=== PATIENT | female | born 1975 | race Caucasian/White ===

== ENCOUNTER → 2024-02-18 13:02 | Outpatient (BNVA) | payer OTHER, SELFPAY | PROVIDERS: Visit Provider Nurse Practitioner | DX: R49.0 Dysphonia (principal); R53.83 Other fatigue; R20.0 Anesthesia of skin; R20.2 Paresthesia of skin; E03.9 Hypothyroidism, unspecified | CPT/HCPCS: 80053; 80061; 83036; 84443; 85025; 85651; 86038; 86140 ==

== ENCOUNTER → 2024-03-17 13:20 | Outpatient (BNVA) | payer OTHER, SELFPAY | PROVIDERS: PCP Nurse Practitioner; Visit Provider Nurse Practitioner | DX: L29.9 Pruritus, unspecified (principal); R19.7 Diarrhea, unspecified | CPT/HCPCS: 86003; 86008 ==

== ENCOUNTER → 2024-03-30 13:54 | Outpatient (BNVA) | payer OTHER, SELFPAY | PROVIDERS: PCP Nurse Practitioner; Referring Provider Nurse Practitioner; Visit Provider Nurse Practitioner | DX: E03.9 Hypothyroidism, unspecified (principal) | CPT/HCPCS: 80053; 84443 ==

== ENCOUNTER 2024-05-12 10:59 | Outpatient (CLI) | payer OTHER, SELFPAY ==
--- NOTE | 2024-05-12 11:00 | MM_ITS ---
WS: [id number] BILATERAL SCREENING DIGITAL TOMOSYNTHESIS MAMMOGRAM WITH CAD HISTORY: Z12.39 - Encounter for other screening for malignant neop... COMPARISON: None available. Bilateral CC and MLO views with tomosynthesis and synthetic mammography submitted. Computer aided det ection analyzed. Breast composition: There are scattered areas of fibroglandular density. No suspicious masses, microc alcifications or architectural distortion. Benign calcifications LEFT breast. MM/[place] [id number] IMPRESSION: BI-RADS: 2 - Benign. FOLLOW UP: 1 Year Follow-up
== END 2024-05-12 11:00 | disposition home or self-care (01) ==
LOC: MOBLMAM 11:02
PROVIDERS: PCP Nurse Practitioner; Visit Provider Nurse Practitioner
DX: Z12.31 Encounter for screening mammogram for malignant neoplasm of breast; R92.323 Mammographic fibroglandular density, bilateral breasts; R92.1 Mammographic calcification found on diagnostic imaging of breast
CPT/HCPCS: 77063; 77067

== ENCOUNTER 2025-02-20 12:28 | Emergency (ER) | payer OTHER, SELFPAY ==
[2025-02-20 12:34] VITALS: BP 132/71; PULSE 73; RESP 19; TEMP 36.6; O2SAT 100; BMI 31.9
--- NOTE | 2025-02-20 14:12 | W.ED.EXTPRO ---
HPI - Extremity Problem General: Chief complaint: Extremity Problem,Nontraumatic Stated complaint: R leg pain unable to walk on it Time Seen by Provider: 02/20/25 13:32 Source: patient Mode of arrival: wheelchair Limitations: no limitations History of Present Illness: Patient is a 49-year-old female who presents to the ED with chief complaint of lower back pain and right leg pain/weakness. Patient has a longstanding history of lower back pain that has gotten worse within the past week. She states she has been having lower back pain that radiates down into her right leg and mainly complains of pain and burning to her anteriolateral right lower leg. No fevers. She has not noticed any color or temperature changes to leg. She is not having any joint pain/erythema/edema. She has noticed some bilateral lower extremity edema. MD Complaint: extremity pain, extremity swelling and other (back pain) Onset (ago): day(s) Pain Consistency: constant Location: right and lower extremity Radiation: none Relieving factors: nothing Exacerbating factors: range of motion, walking and palpation Associated symptoms: Reports no associated symptoms; Deny chest pain, fever(s) or rash Related Data Previous Rx's ?Medication ?Instructions ?Recorded levothyroxine 175 mcg tablet See Rx Instructions .Route 07/26/24 .COMPLEX #30 tabs ferrous sulfate 325 mg (65 mg See Rx Instructions .Route 07/31/24 iron) tablet (FeroSul) .COMPLEX #100 tabs cyclobenzaprine 10 mg tablet 10 mg PO TID #14 tabs 02/20/25 hydrocodone 5 mg-acetaminophen 325 1 tab PO Q6H PRN pain #14 tabs 02/20/25 mg tablet ibuprofen 800 mg tablet 800 mg PO Q8H PRN pain #20 tabs 02/20/25 methylprednisolone 4 mg tablets in See Rx Instructions PO .COMPLEX 02/20/25 a dose pack (Medrol (Michael)) #21 ea Allergies Allergy/AdvReac Type Severity Reaction Status Date / Time Sulfa (Sulfonamide Allergy Intermediate Unknown Verified 03/17/24 12:56 Antibiotics) Review of Systems Const: Denies: fever(s), chills, body aches, fatigue or malaise Card: Denies: chest pain Resp: Denies: dyspnea GI: Denies: abdominal pain : Denies: flank pain, dysuria or hematuria Musc: Reports: back pain, extremity pain and extremity swelling; Denies: neck pain, joint pain, joint swelling, joint redness, joint warmth, joint stiffness or muscle cramps Skin/Breast: Denies: rash Neuro: Denies: headache(s), numbness in extremities, weakness in extremities or sensory changes PFS ED PFSH: Medical History Psychiatric care Family History Grandmother Cancer maternal- colon Family/Other Cancer cousins-- breast Father Cancer prostate Denies family history of Diabetes Chronic kidney disease (CKD) Social History Smoking and tobacco/nicotine status: never used tobacco/nicotine Female Reproductive History: Para: 4 Spontaneous abortions: Yes Physical Exam Const: COMMON NORMALS: average body habitus, patient oriented x3, no limitations, alert and well nourished GENERAL APPEARANCE: cooperative ORIENTATION/CONSCIOUSNESS: Yes awake, Yes oriented to person, Yes oriented to place and Yes oriented to time Back/Pelvis: COMMON NORMALS: thoracic and lumbar spine normal to inspection THORACIC SPINE/UPPER BACK: No thoracic spinal tenderness LUMBAR SPINE/LOWER BACK: No lumbar spinal tenderness PELVIS: Yes buttocks normal and Yes sciatic notch tenderness SACROILIAC JOINTS: Yes SI joint(s) abnormal SI joint details: tender to palpation (R) SACRUM: no tenderness COCCYX: no tenderness Extremity: COMMON NORMALS: capillary refill normal and no joint enlargement GENERAL: Yes normal exam except as noted OTHER: pain mainly to R lower leg below the knee; she does have bilateral mild (R>L) non pitting edema; DP/PT pulses and cap refill are normally bilaterally; sensation appears intact; she complains of pain with ROM of all joints; leg strength is weakened due to pain but strength loss does not affect any specific myotome Neuro: COMMON NORMALS: patient oriented x3, moves all extremities, no focal motor deficits, no sensory deficits noted and gait normal SENSORIUM/ORIENTATION: Yes alert, Yes oriented to person, Yes oriented to place and Yes oriented to time GAIT: Yes Normal gait present DEEP TENDON REFLEXES: Right patellar reflex intensity grade: 2+ and Left patellar reflex intensity grade: 2+ Skin: COMMON NORMALS: no rashes or lesions noted GENERAL SKIN EXAM: no rashes or lesions noted Course Vital Signs: Vital signs: Vital Signs Temperature 97.9 F 02/20/25 12:34 Pulse Rate 73 02/20/25 12:34 Respiratory Rate 19 H 02/20/25 12:34 Blood Pressure 132/71 02/20/25 12:34 Pulse Oximetry 100 02/20/25 12:34 Oxygen Delivery Me thod Room Air 02/20/25 12:34 MDM - Extremity (Nontraumatic) Medical Decision Making Patient feels better after medications given here. She was ambulatory here. Vital signs are stable. Blood work overall is unremarkable. Will refer her to Dr. Elias given her mild right lateral recess stenosis and neural foraminal stenosis at the L4-L5 level which corresponds to her symptoms today. Return ED precautions given. Medical Records I reviewed the patient's medical records. Lab Data 02/20/25 16:05 02/20/25 16:05 Radiology Impressions Lumbar Spine CT 02/20/25 14:25 IMPRESSION: 1. Right lateral recess stenosis and neural foraminal stenosis at the L4-L5 level. 2. Schmorl's nodes at the L4-L5 endplates may be degenerative or compressive induced. Laboratory Results WBC 6.62 10^3/uL (3.29-11.43) 02/20/25 16:05 RBC 3.83 10^6/uL (3.85-5.65) L 02/20/25 16:05 Hgb 11.10 g/dL (11.27-16.99) L 02/20/25 16:05 Hct 34.0 % (36-47) L 02/20/25 16:05 MCV 88.8 fl (85-98) 02/20/25 16:05 MCH 29.0 pg (27-33) 02/20/25 16:05 MCHC 32.6 g/dL (30-55) 02/20/25 16:05 RDW 13.7 % (12.1-15.1) 02/20/25 16:05 Plt Count 239 10^3/cmm (157-399) 02/20/25 16:05 MPV 9.4 fL (7.4-10.4) 02/20/25 16:05 Neut % (Auto) 78.9 % 02/20/25 16:05 Lymph % (Auto) 14.8 % 02/20/25 16:05 Chester % (Auto) 2.3 % 02/20/25 16:05 Eos % (Auto) 2.3 % 02/20/25 16:05 Baso % (Auto) 1.4 % 02/20/25 16:05 Neut # (Auto) 5.23 10^3/uL (1.8-7.7) 02/20/25 16:05 Lymph # (Auto) 1.0 10^3/uL (0.8-4.8) 02/20/25 16:05 Chester # (Auto) 0.2 10^3/uL (0.2-0.9) 02/20/25 16:05 Eos # (Auto) 0.2 10^3/uL (0.0-0.8) 02/20/25 16:05 Baso # (Auto) 0.1 10^3/uL (0.0-0.1) 02/20/25 16:05 Nucleated RBC % (auto) 0 % 02/20/25 16:05 Nucleated RBCs # 0.0 /100WBC 02/20/25 16:05 Sodium 138 mmol/L (136-145) 02/20/25 16:05 Potassium 3.8 mmol/L (3.5-5.1) 02/20/25 16:05 Chloride 101 mmol/L (98-107) 02/20/25 16:05 Carbon Dioxide 25 mmol/L (22-29) 02/20/25 16:05 Anion Gap 15.8 (5-19) 02/20/25 16:05 BUN 14 mg/dL (6-20) 02/20/25 16:05 Creatinine 1.3 mg/dL (0.5-0.9) H 02/20/25 16:05 GFR Calculation 43.5 mL/min (90-130) L 02/20/25 16:05 Glucose 120 mg/dL (65-115) H 02/20/25 16:05 Calculated Osmolality 288 mOsm/kg (285-295) 02/20/25 16:05 Calcium 9.3 mg/dL (8.5-10.5) 02/20/25 16:05 Total Bilirubin 0.4 mg/dL (0.15-1.2) 02/20/25 16:05 AST 55 U/L (0-32) H 02/20/25 16:05 ALT 22 U/L (0-33) 02/20/25 16:05 Alkaline Phosphatase 76 U/L (35-105) 02/20/25 16:05 C-Reactive Protein 3.0 mg/L (0.0-4.9) 02/20/25 16:05 Total Protein 7.6 g/dL (6.6-8.7) 02/20/25 16:05 Albumin 4.3 g/dL (3.5-5.2) 02/20/25 16:05 Globulin 3.3 g/dL (1.3-4.6) 02/20/25 16:05 All radiology interpretation(s) finalized by discharge Discharge Plan Discharge Patient Disposition: Home Clinical Impression: Acute right lumbar radiculopathy Condition: Stable Prescriptions: New cyclobenzaprine 10 mg tablet 10 mg PO TID Qty: 14 0RF ibuprofen 800 mg tablet 800 mg PO Q8H PRN (Reason: pain) Qty: 20 0RF hydrocodone-acetaminophen 5-325 mg tablet 1 tab PO Q6H PRN (Reason: pain) Qty: 14 0RF methylprednisolone [Medrol (Michael)] 4 mg tablets,dose pack See Rx Instructions .ROUTE .COMPLEX Qty: 21 0RF Rx Instructions: orally per package directions No Action levothyroxine 175 mcg tablet See Rx Instructions .ROUTE .COMPLEX Qty: 30 1RF Dose Instruction: TAKE 1 TABLET BY MOUTH DAILY Rx Instructions: TAKE 1 TABLET BY MOUTH DAILY ferrous sulfate [FeroSul] 325 mg (65 mg iron) tablet See Rx Instructions .ROUTE .COMPLEX Qty: 100 1RF Dose Instruction: TAKE 1 TABLET BY MOUTH DAILY Rx Instructions: TAKE 1 TABLET BY MOUTH DAILY Discharge Orders: Discharge ED (Routine); Ordered 02/20/25 Ordered By: Lynda Cortes Referrals: Emely Staton FNP [Primary Care Provider, Nurse Practitioner] Patient Instructions: Lumbar Radiculopathy (ED), Opioid Safety, Pain Management Activity Restrictions/Additional Instructions: As we discussed, we will place a case management referral to get you set up with Dr. Elias for further evaluation of your back discomfort and CT findings. You may also follow-up with primary care in the meantime. You may try the prescription medications to help with discomfort. You may return to the emergency department for worsening or severe abdominal pain or leg pain as well as severe leg weakness, inability to walk, or any other concerns you may have. Print Language: Citizen Of [place] Coding Level of Care Code ED Shipping Assistant for Elisa Alonzo
--- NOTE | 2025-02-20 14:25 | CTR_ITS ---
PROCEDURE INFORMATION: Exam: CT Lumbar Spine Without Contrast Exam date and time: 02/20/2025 2:58 PM Age: 49 years old Clinical indication: Pain; Lumbago with sciatica; Right; Additional info: R leg pain/numbness TECHNIQUE: Imaging protocol: Computed tomography of the lumbar spine without contrast. Radiation optimization: All CT scans at this facility use at least one of these dose optimization techniques: automated exposure control; mA and/or kV adjustment per patient size (includes targeted exams where dose is matched to clinical indication); or iterative reconstruction. COMPARISON: No relevant prior studies available. RADIATION DOSE METRICS: Total DLP (mGy-cm): 882.78 FINDINGS: Bones/joints: There are no anterior wedging deformities. No acute lucent fracture lines are visualized. Schmorl's nodes at the L4-L5 endplates may be degenerative or compressive induced. There is lower lumbar facet arthropathy. Spondylitic disc bulge causes right lateral recess stenosis at L4-L5. Moderate to severe right neural foraminal stenosis at this level. There is no severe central canal stenosis demonstrated by CT. Reproductive: There is a 5.0 cm right adnexal cyst partially visualized in the pelvis. Soft tissues: Unremarkable. CT/CT lumbar spine wo con* [id number] IMPRESSION: 1. Right lateral recess stenosis and neural foraminal stenosis at the L4-L5 level. 2. Schmorl's nodes at the L4-L5 endplates may be degenerative or compressive induced.
[2025-02-20] MEDS: orphenadrine 30 mg/mL Inj 2 mL 60 MG IVP (14:50)
[2025-02-20] MEDS: ketorolac 60 mg/2 mL INJ 30 MG IVP (14:52)
[2025-02-20] MEDS: dexamethasone 10 mg/mL INJ 8 MG IVP (14:53)
[2025-02-20 16:28] LABS: Basophils # 0.1 10^3/uL (0.0-0.1); Basophils % 1.4 %; Eosinophils # 0.2 10^3/uL (0.0-0.8); Eosinophils % 2.3 %; Lymphocytes % 14.8 %; Mean Corpuscular HGB Conc 32.6 g/dL (30-55); Mean Corpuscular Volume 88.8 fl (85-98); Mean Platelet Volume 9.4 fL (7.4-10.4); Monocytes # 0.2 10^3/uL (0.2-0.9); Monocytes % 2.3 %; Neutrophils # 5.23 10^3/uL (1.8-7.7); Neutrophils % 78.9 %; Nucleated Red Blood Cells % 0 %; Platelet Count 239 10^3/cmm (157-399); Red Blood Count 3.83 10^6/uL (3.85-5.65); Red Cell Distribution Width 13.7 % (12.1-15.1); White Blood Count 6.62 10^3/uL (3.29-11.43)
[2025-02-20] MEDS: morphine 4 mg/mL SDV 1 mL IVP (16:44)
[2025-02-20 16:45] LABS: Alanine Aminotransferase 22 U/L (0-33); Albumin Level 4.3 g/dL (3.5-5.2); Alkaline Phosphatase 76 U/L (35-105); Anion Gap 15.8 (5-19); Aspartate Amino Transferase 55 U/L (0-32); Blood Urea Nitrogen 14 mg/dL (6-20); Calcium 9.3 mg/dL (8.5-10.5); Carbon Dioxide 25 mmol/L (22-29); Chloride 101 mmol/L (98-107); Creatinine Clr Calc Pharmacy 55.0104; Globulin 3.3 g/dL (1.3-4.6); Glomerular Filtration Rate 43.5 mL/min (90-130); Glucose 120 mg/dL (65-115); Osmolality Calculated 288 mOsm/kg (285-295); Potassium 3.8 mmol/L (3.5-5.1); Sodium 138 mmol/L (136-145); Total Bilirubin 0.4 mg/dL (0.15-1.2); Total Protein 7.6 g/dL (6.6-8.7)
--- NOTE | 2025-02-22 08:08 | DCPLANNER ---
Message sent to Ortho Dr. Elias- Patient feels better after medications given here. She was ambulatory here. Vital signs are stable. Blood work overall is unremarkable. Will refer her to Dr. Elias given her mild right lateral recess stenosis and neural foraminal stenosis at the L4-L5 level which corresponds to her symptoms today. Return ED precautions given.
== END 2025-02-20 17:15 | disposition home or self-care (01) ==
PROVIDERS: Emergency Provider Physician Assistant; PCP Nurse Practitioner
DX: M54.16 Radiculopathy, lumbar region (principal)
CPT/HCPCS: 72131; 80053; 85025; 86140; 96374; 96375; 99285; J1100; J1885; J2270; J2360

== ENCOUNTER → 2025-02-23 18:21 | Outpatient (BNVA) | payer OTHER, SELFPAY | PROVIDERS: PCP Nurse Practitioner; Visit Provider Family Medicine | DX: S96.911A Strain of unspecified muscle and tendon at ankle and foot level, right foot, initial encounter (principal); X58.XXXA Exposure to other specified factors, initial encounter | CPT/HCPCS: 73610 ==

== ENCOUNTER → 2025-02-28 14:34 | Outpatient (BNVA) | payer OTHER, SELFPAY | PROVIDERS: PCP Nurse Practitioner; Visit Provider Nurse Practitioner | DX: M25.571 Pain in right ankle and joints of right foot (principal); R20.0 Anesthesia of skin; R20.2 Paresthesia of skin; E03.9 Hypothyroidism, unspecified | CPT/HCPCS: 80053; 84443; 84550; 85025; 86618; 86666; 86757 ==

== ENCOUNTER → 2025-03-09 13:58 | Outpatient (BNVA) | payer OTHER, SELFPAY | PROVIDERS: PCP Nurse Practitioner; Visit Provider Nurse Practitioner | DX: R60.0 Localized edema (principal); E87.6 Hypokalemia | CPT/HCPCS: 80053; 85651; 86038; 86140; 86431 ==

== ENCOUNTER → 2025-03-21 09:06 | Outpatient (BNVA) | payer OTHER, SELFPAY | PROVIDERS: PCP Nurse Practitioner; Visit Provider Orthopaedic Surgery | DX: R20.0 Anesthesia of skin (principal); R20.2 Paresthesia of skin; M21.371 Foot drop, right foot; Z46.89 Encounter for fitting and adjustment of other specified devices | CPT/HCPCS: 72110 ==

== ENCOUNTER 2025-03-22 10:11 | Emergency (ER) | payer OTHER, SELFPAY ==
[2025-03-22 10:23] VITALS: BP 122/77; PULSE 91; TEMP 36.8; O2SAT 98
--- NOTE | 2025-03-22 10:23 | USCV_ITS ---
Ramirez Edge Age: 49 Gender: F : 1975 Exam Date: 03/22/2025 11:23 Ordering Phys: Dominique Love MD Technologist: [employer] Exam Location: [facility] – [place]_ Indication: RIGHT LEG PAIN HISTORY: Lower extremity pain-RIGHT PROCEDURES: Venous duplex imaging was performed in only the right lower extremity. The following venous structures were evaluated: common femoral vein, profunda vein, proximal portion of the greater saphenous vein, superficial femoral vein, and the popliteal vein. In addition, the posterior tibial and peroneal trunk were evaluated. FINDINGS: No evidence of DVT seen in any vessel visualized at this time. CONCLUSIONS No evidence of right lower extremity DVT. Ovidio Gustafson MD (Electronically Signed) Final Date: 22 March 2025 12:47 S
--- NOTE | 2025-03-22 10:24 | W.ED.GENADLT ---
HPI - General Adult General: Chief complaint: Extremity Problem,Nontraumatic Stated complaint: dr garcia sent for diagnostic testing Time Seen by Provider: 03/22/25 10:18 History of Present Illness: 49-year-old female with a history of obesity, depression and hypothyroidism who presents to the emergency room from neurology clinic. She been having issues with foot drop and neuropathic issues. She was sent to rule out compartment syndrome. On exam she does not have any evidence of compartment syndrome. Currently she has no pain. She does have some mild edema and little bit of redness. However there is no evidence of compartment syndrome. She has not had an ultrasound to rule out DVT so we will do that here in the emergency room today. No chest pain. No cardiac history. No shortness of breath. Related Data Home Medications ?Medication ?Instructions ?Recorded ?Confirmed gabapentin 300 mg capsule 300 mg PO QPM 03/22/25 03/22/25 levothyroxine 175 mcg tablet 175 mcg PO QAM 03/22/25 03/22/25 venlafaxine 37.5 mg 37.5 mg PO QAM 03/22/25 03/22/25 capsule,extended release 24 hr (Effexor XR) Previous Rx's ?Medication ?Instructions ?Recorded ibuprofen 800 mg tablet 800 mg PO Q8H PRN pain #20 tabs 02/20/25 potassium chloride 20 mEq 20 meq PO DAILY #30 tabs 03/02/25 tablet,extended release(part/cryst) (Klor-Con M) AFO brace #1 ea 03/21/25 Allergies Allergy/AdvReac Type Severity Reaction Status Date / Time Sulfa (Sulfonamide Allergy Intermediate Unknown Verified 03/22/25 10:25 Antibiotics) Review of Systems Narrative: Constitutional symptoms: Negative except as documented in HPI. Skin symptoms: Negative except as documented in HPI. Eye symptoms: Negative except as documented in HPI. ENMT symptoms: Negative except as documented in HPI. Respiratory symptoms: Negative except as documented in HPI. Cardiovascular symptoms: Negative except as documented in HPI. Gastrointestinal symptoms: Negative except as documented in HPI. Genitourinary symptoms: Negative except as documented in HPI. Musculoskeletal symptoms: Negative except as documented in HPI. Neurologic symptoms: Negative except as documented in HPI. Psychiatric symptoms: Negative except as documented in HPI. Endocrine symptoms: Negative except as documented in HPI. [facility] ED PFS: Medical History (Updated 03/22/25 @ 11:34 by Dominique Love MD) Psychiatric care Family History Grandmother Cancer maternal- colon Family/Other Cancer cousins-- breast Father Cancer prostate Denies family history of Diabetes Chronic kidney disease (CKD) Social History Smoking and tobacco/nicotine status: former use of tobacco/nicotine Female Reproductive History: Para: 4 Spontaneous abortions: Yes Physical Exam Narrative: EXAM NARRATIVE: General: Alert, no acute distress. Skin: Warm, dry. Head: Normocephalic, atraumatic. Neck: Supple, trachea midline. Eye: Extraocular movements are intact. Ears, nose, mouth and throat: mucosa moist. Cardiovascular: Regular, Normal peripheral perfusion. Respiratory: Lungs are clear to auscultation, respirations are non-labored, breath sounds are equal, Symmetrical chest wall expansion. Gastrointestinal: Soft, Nontender, Non distended Musculoskeletal: Normal ROM, no deformity. Some mild edema of the right calf with some mild redness. Currently she has no pain. She is neurovascularly intact. No evidence of compartment syndrome. Neurological: Alert and oriented, No focal neurological deficit observed. Psychiatric: Cooperative, appropriate mood & affect. Course Vital Signs: Vital signs: Vital Signs Temperature 98.2 F 03/22/25 10:23 Pulse Rate 91 03/22/25 10:23 Blood Pressure 122/77 03/22/25 10:23 Pulse Oximetry 98 03/22/25 10:23 Oxygen Delivery Me thod Room Air 03/22/25 10:23 MDM - General Adult Medical Decision Making Medical decision making: Differential diagnosis including but not limited to and based on the above HPI, review of systems and physical exam: for patient with edema: Congestive heart failure. Kidney failure. DVT / Pulmonary embolism. Protein malnutrition. Cirrhosis. Orders placed to evaluate differential diagnosis based on the above differential, HPI and physical exam Lab Review: Laboratory results were reviewed and interpreted by myself the emergency room physician. No leukocytosis. No anemia. No renal failure. CRP is quite elevated and her CK is mildly elevated. I reviewed the patient's medical record. Ultrasound of the right lower extremity: Negative for DVT. This was reviewed and interpreted by myself the emergency room physician. I also reviewed the radiology report. Reexamination: Patient remained stable. No increased work of breathing. No altered mental status. No focal motor deficits. Currently with no pain. She has follow-up with Dr. Andrew with Dr. Garcia for her foot drop and neuropathic pain. Assessment and plan: Leg swelling Foot drop - Discharged home - Discussed plan with patient. Answered any questions. - Evaluation and treatment of this problem were appropriate in the emergency setting. Lab Data 03/22/25 10:41 03/22/25 10:41 Laboratory Results WBC 6.04 10^3/uL (3.29-11.43) 03/22/25 10:41 RBC 4.00 10^6/uL (3.85-5.65) 03/22/25 10:41 Hgb 11.50 g/dL (11.27-16.99) 03/22/25 10:41 Hct 35.6 % (36-47) L 03/22/25 10:41 MCV 89.0 fl (85-98) 03/22/25 10:41 MCH 28.8 pg (27-33) 03/22/25 10:41 MCHC 32.3 g/dL (30-55) 03/22/25 10:41 RDW 13.3 % (12.1-15.1) 03/22/25 10:41 Plt Count 318 10^3/cmm (157-399) 03/22/25 10:41 MPV 8.3 fL (7.4-10.4) 03/22/25 10:41 Neut % (Auto) 61.3 % 03/22/25 10:41 Lymph % (Auto) 24.5 % 03/22/25 10:41 Orange % (Auto) 9.9 % 03/22/25 10:41 Eos % (Auto) 2.6 % 03/22/25 10:41 Baso % (Auto) 1.0 % 03/22/25 10:41 Neut # (Auto) 3.70 10^3/uL (1.8-7.7) 03/22/25 10:41 Lymph # (Auto) 1.5 10^3/uL (0.8-4.8) 03/22/25 10:41 Orange # (Auto) 0.6 10^3/uL (0.2-0.9) 03/22/25 10:41 Eos # (Auto) 0.2 10^3/uL (0.0-0.8) 03/22/25 10:41 Baso # (Auto) 0.1 10^3/uL (0.0-0.1) 03/22/25 10:41 Nucleated RBC % (auto) 0 % 03/22/25 10:41 Nucleated RBCs # 0.0 /100WBC 03/22/25 10:41 Sodium 137 mmol/L (136-145) 03/22/25 10:41 Potassium 3.8 mmol/L (3.5-5.1) 03/22/25 10:41 Chloride 98 mmol/L (98-107) 03/22/25 10:41 Carbon Dioxide 26 mmol/L (22-29) 03/22/25 10:41 Anion Gap 16.8 (5-19) 03/22/25 10:41 BUN 9 mg/dL (6-20) 03/22/25 10:41 Creatinine 0.8 mg/dL (0.5-0.9) 03/22/25 10:41 GFR Calculation 76.2 mL/min (90-130) L 03/22/25 10:41 Glucose 113 mg/dL (65-115) 03/22/25 10:41 Calculated Osmolality 283 mOsm/kg (285-295) L 03/22/25 10:41 Calcium 9.3 mg/dL (8.5-10.5) 03/22/25 10:41 Total Bilirubin 0.6 mg/dL (0.15-1.2) 03/22/25 10:41 AST 22 U/L (0-32) 03/22/25 10:41 ALT 16 U/L (0-33) 03/22/25 10:41 Alkaline Phosphatase 84 U/L (35-105) 03/22/25 10:41 Creatine Kinase 196 U/L (26-192) H 03/22/25 10:41 C-Reactive Protein 6.7 mg/L (0.0-4.9) H 03/22/25 10:41 NT-Pro-B Natriuret Pep 50 pg/mL (0-125) 03/22/25 10:41 Total Protein 7.3 g/dL (6.6-8.7) 03/22/25 10:41 Albumin 4.2 g/dL (3.5-5.2) 03/22/25 10:41 Globulin 3.1 g/dL (1.3-4.6) 03/22/25 10:41 All radiology interpretation(s) finalized by discharge Discharge Plan Discharge Patient Disposition: Home Clinical Impression: Leg edema, right, Foot drop, right Condition: Stable Prescriptions: No Action (DME) AFO brace See Rx Instructions .Route .MEDSUPPLY Qty: 1 0RF Rx Instructions: As directed potassium chloride [Klor-Con M20] 20 mEq tablet,ER particles/crystals 20 meq PO DAILY Qty: 30 1RF ibuprofen 800 mg tablet 800 mg PO Q8H PRN (Reason: pain) Qty: 20 0RF levothyroxine 175 mcg tablet 175 mcg PO QAM venlafaxine [Effexor XR] 37.5 mg capsule,extended release 24hr 37.5 mg PO QAM gabapentin 300 mg capsule 300 mg PO QPM Discharge Orders: Discharge ED (Routine); Ordered 03/22/25 Ordered By: Dominique Love Referrals: Emely Staton FNP [Primary Care Provider, Nurse Practitioner] Discharge Diet: Usual diet Discharge Activity: Increase activity as tolerated Patient Instructions: Opioid Safety, Pain Management, Patient Portal & Babatunde Instructions Activity Restrictions/Additional Instructions: Thank you for choosing [facility] for your healthcare needs today. You have been screened and evaluated and felt safe for discharge. Health conditions do change or evolve sometimes and as such it is important that you follow up with your Primary Doctor to be re checked, 3-5 days is a general good time frame for follow up. You are always welcome to return to the ED for re assessment if your symptoms are worsening or you have new concerns Print Language: Hungarian Coding Level of Care Code ED Salon Supervisor for Elisa Alonzo
--- OUTSIDE RECORDS SUMMARY | 2025-03-22 10:24 | XMS_ITS | Data Portability ---
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 Plan of Treatment Reminders Order Date Submit Date Provider Last Modified By Organization Details Last Modified Time Details Appointments None recorded. Lab CBC, reflex manual diff 2021 022 mariposa Vm_phxharrison chavira MD Lab, [address], [address], [place], [address], 2 09:58:52 lipid panel, serum 2021 022 mariposa Keller_phxharrison chavira MD Lab, [address], [address], [place], [address], 2 09:58:52 CMP, serum or plasma 2021 022 [place] Vm_phxharrison chavira MD Lab, [address], [address], [place], [address], 2 09:58:52 HbA1c (hemoglobin A1c), blood 2021 022 mariposa Hainesphxharrison chavira MD Lab, [address], [address], [place], [address], 2 09:58:53 TSH, serum, reflex free T4 2021 [email or web address] Calderon chavira MD Lab, [address], [address], [place], [address], 2 09:58:52 vitamin B12, serum 2021 [email or web address] Calderon chavira MD Lab, [address], [address], [place], [address], 2 09:58:53 rheumatoid factor, qualitative , serum 2021 VELIA Calderon chavira MD Lab, [address], [address], [place], [address], 2 10:01:17 ESR (erythrocyt e sedimentati on rate), blood 2021 [email or web address] Calderon chavira MD Lab, [address], [address], [place], [address], 2 09:58:53 MUSA (antinuclea r antibodies) screen, serum 2021 [email or web address] Calderon chavira MD Lab, [address], [address], [place], [address], 09:58:[address] referral - Please contact patient to schedule appointment , Thank you 2021 022 [email or web address] [facility], [address], [place], [address], 09:09:52 gastroenter ologist referral - Please contact patient to schedule appointment , Thank you 2021 022 [email or web address] Not available 09:09:54 endocrinolo gy referral - Please contact patient to schedule appointment , Thank you 2021 [email or web address] [facility], [address], [address], [place], [address], 09:09:51 Procedures None recorded. Surgeries None recorded. Imaging MAMMO, screening, digital, bilateral 2021 [email or web address] [facility] [place], [address], [place], [address], 18:11:18 Medication Orders Synthroid 125 mcg tablet 2021 [facility] [id number], [address], [place], [address], 13:14:35 gabapentin 300 mg capsule 2021 [facility] [id number], [address], [place], [address], 13:14:34 Patient TargetsNo targets recorded. Patient Instructions Encounter Date Encounter Id Patient Instructions Last Modified By Organization Details Last Modified Time 05/26/2022 [id number] insomnia: care instructions [email or web address] [id number] Not available 05/26/2022 13:33:10 learning about obesity [email or web address] 2 Not available 05/26/2022 13:14:26 starting a weigh t loss plan: care instructions [email or web address] 2 Not available 05/26/2022 13:14:26 fatigue: care instructions [email or web address] 2 Not available 05/26/2022 13:14:26 noreen's thyroiditis: care instructions [email or web address] 2 Not available 05/26/2022 13:33:10 hypothyroidism: care instructions [email or web address] 2 Not available 05/26/2022 13:14:25 neuropathic pain : care instructions [email or web address] 2 Not available 05/26/2022 13:14:26 Take your medication as prescribed -Maintain a diet rich in Fiber, Fruits, and vegetables; Low in saturated fats; salt; and simple carbohydrates. -Exercise 30-40 min per day, Most days of the week as tolerated moderate intensity exercise -Obtain Labs -Return for worsening symptoms -Return to clinic in 1-2 months or sooner if needed. 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 9 Not Available Calderon chavira MD Lab [address] [place] [address], [address], 05/28/2022 10:01:17 05/26/20 22 05/27/2022 MUSA COMPR EHENS VANESSA PANEL anti-DNA (ds) Ab qn <1 IU/mL 0-9 Negat vanessa <5 Equiv ocal 5 - 9 Posit vanessa >9 Not Available Calderon chavira MD Lab [address] [place] [address], [address], 05/28/2022 10:01:17 05/26/20 22 05/27/2022 MUSA COMPR EHENS VANESSA PANEL anti-radha-1 <0.2 ai 0.0-0. 9 Not Available Calderon chavira MD Lab [address] [place] [address], [place], [address], 05/28/2022 10:01:05/26/20 22 05/27/2022 MUSA COMPR EHENS VANESSA PANEL antichromati n antibodies <0.2 ai 0.0-0. 9 Not Available [facility] [address] [address], [place], [address], 05/28/2022 10:01:17 05/26/20 22 05/27/2022 MUSA COMPR EHENS VANESSA PANEL antisclerode rma-70 antibodies <0.2 ai 0.0-0. 9 Not Available [facility] [address] [place] [address], [place], [address], 05/28/2022 10:01:05/26/20 22 05/27/2022 MUSA COMPR EHENS VANESSA PANEL crayon sawyer antibodies <0.2 ai 0.0-0. 9 Not Available [facility] [address] [place] [address], [place], [address], 05/28/2022 10:01:17 05/26/20 22 05/27/2022 MUSA COMPR EHENS VANESSA PANEL see below: COMMEN T Autoa ntibo dy Disea se Assoc iatio n ----- ----- ----- ----- ----- ----- ----- ----- ----- ----- ----- ----- Condi tion Frequ ency ----- ----- ----- ----- - ----- ----- ----- ----- ---- ----- ---- Antin uclea r Antib yuki, SLE, mixed conne ctive Direc t (MUSA- D) tissu e disea ses ----- ----- ----- ----- - ----- ----- ----- ----- ---- ----- ---- dsDNA SLE 40 - 60% ----- ----- ----- ----- - ----- ----- ----- ----- ---- ----- ---- Chrom atin Drug induc ed SLE 90% SLE 48 - 97% ----- ----- ----- ----- - ----- ----- ----- ----- ---- ----- ---- SSA (Ro) SLE 25 - 35% Sjogr en's Syndr ome 40 - 70% Neona rafael Lupus 100% ----- ----- ----- ----- - ----- ----- ----- ----- ---- ----- ---- SSB (La) SLE 10% Sjogr en's Syndr ome 30% ----- ----- ----- ----- - ----- ----- ----- ----- --- ----- ---- Sm (anti -Jayy h) SLE 15 - 30% ----- ----- ----- ----- - ----- ----- ----- ----- --- ----- ---- PRACTICE MANAGER Mixed Conne ctive Tissu e Disea se 95% (U1 nRNP, SLE 30 - 50% anti- ribon ucleo prote in) Polym yosit is and/o r Crimora tomyo sitis 20% ----- ----- ----- ----- - ----- ----- ----- ----- ---- ----- ---- Scl-7 0 (anti DNA Scler oderm a (diff use) 20 - 35% topoi brenda ase) Crest 13% ----- ----- ----- ----- - ----- ----- ----- ----- ---- ----- ---- Radha-1 Polym yosit is and/o r Crimora tomyo sitis 20 - 40% ----- ----- ----- ----- - ----- ----- ----- ----- ---- ----- ---- Centr omere B Scler oderm a - Crest varia nt 80% Not Available _andrew chavira MD Lab [address] [place] [address], [place], [address], 05/28/2022 10:01:17 05/26/20 22 05/27/2022 MUSA COMPR EHENS VANESSA PANEL sjogren's anti-ss-A <0.2 ai 0.0-0. 9 Not Available _andrew chavira MD Lab [address] [address], [place], [address], 05/28/2022 10:01:17 05/26/20 22 05/27/2022 MUSA COMPR EHENS VANESSA PANEL sjogren's anti-ss-B <0.2 ai 0.0-0. 9 Not Available [facility] [address] [place] [address], [place], [address], 05/28/2022 10:01:17 05/26/20 22 05/27/2022 MUSA COMPR EHENS VANESSA PANEL sheriff antibodies <0.2 ai 0.0-0. 9 Not Available [facility] [address] [address], [place], [address], 05/28/2022 10:01:17 05/26/20 22 05/27/2022 RHEUM ATOID ARTHR ITIS FACTO R RF RH FACTO R, RHEUM .FACT OR rheumatoid factor (rf) <10.0 IU/mL <14.0 Not Available Krishna_p hx_nurys chavira MD Lab [address] [place] [address], [place], [address], 05/28/2022 10:01:18 05/26/20 22 05/27/2022 SEDIM ENTAT ION RATE- WESTE RGREN ESR sedimentatio n rate-westerg tracy 16 mm/HR 0-32 Not Available Jonathon chavira MD Lab [address] [place] [address], [place], [address], 05/28/2022 10:01:18 05/26/20 22 05/27/2022 CBC (LAVE NDER) WBC 5.8 x10e3 /uL 3.9 - 10.0 Not Available Calderon chavira MD Lab [address] [place] [address], [place], [address], 05/28/2022 10:01:05/26/20 22 05/27/2022 CBC (LAVE NDER) RBC 4.22 x10e6 /uL 3.93 - 6.08 Not Available Calderon chavira MD Lab [address] [place] [address], [place], [address], 05/28/2022 10:01:19 05/26/20 22 05/27/2022 CBC (LAVE NDER) hemoglobin 10.4 g/dL 11.2 - 17.5 low Not Available Calderon chavira MD Lab [address] [place] [address], [place], [address], 05/28/2022 10:01:19 05/26/20 22 05/27/2022 CBC (LAVE NDER) hematocrit 34.9 % 34.2 - 51.4 Not Available Calderon chavira MD Lab [address] [place] [address], [place], [address], 05/28/2022 10:01:05/26/20 22 05/27/2022 CBC (LAVE NDER) MCV 83 fL 79 - 100 Not Available Vm_phx_villag e MD Lab [address] [place] [address], [place], [address], 05/28/2022 10:01:19 05/26/20 22 05/27/2022 CBC (LAVE NDER) MCH 24.6 pg 25.6 - 32.3 low Not Available [facility] [address] [place] [address], [place], [address], 05/28/2022 10:01:05/26/20 22 05/27/2022 CBC (LAVE NDER) MCHC 29.8 % 32.2 - 36.5 low Not Available [facility] [address] [place] [address], [place], [address], 05/28/2022 10:01:05/26/20 22 05/27/2022 CBC (LAVE NDER) RDW 17.2 fL 11.6 - 14.4 high Not Available [facility] [address] [place] [address], [place], [address], 05/28/2022 10:01:19 05/26/20 22 05/27/2022 CBC (LAVE NDER) segmented neutrophils % 62.9 % 34.0 - 71.1 Not Available [facility] [address] [place] [address] [address], [place], [address], 05/28/2022 10:01:19 05/26/20 22 05/27/2022 CBC (LAVE NDER) lymphocytes % 26.0 % 19.3 - 53.1 Not Available Vm[facility]phx_nurys e [facility] [address] [place] [address], [place], [address], 05/28/2022 10:01:05/26/20 22 05/27/2022 CBC (LAVE NDER) monocytes % 5.7 % 4.7 - 12.5 Not Available Vm[facility]phx_nurys e [facility] [address] [place] [address], [place], [address], 05/28/2022 10:01:05/26/20 22 05/27/2022 CBC (LAVE NDER) eosinophils % 4.5 % 0.7 - 7.0 Not Available [facility]phx_nurys e [facility] [address] [place] [address], [place], [address], 05/28/2022 10:01:05/26/20 22 05/27/2022 CBC (LAVE NDER) basophils % 0.9 % 0.1 - 1.2 Not Available Vm[facility]phx_nurys e [facility] [address] [place] [address], [place], [address], 05/28/2022 10:01:05/26/20 22 05/27/2022 CBC (LAVE NDER) segmented neutrophils # 3.68 x10e3 /uL 1.56 - 6.13 Not Available Krishna_phx_nurys e Lab [address] [place] [address], [place], [address], 05/28/2022 10:01:05/26/20 22 05/27/2022 CBC (LAVE NDER) lymphocytes # 1.52 x10e3 /uL 1.18 - 3.74 Not Available Vm_phx_nurys e [facility] [address] [place] [address], [place], [address], 05/28/2022 10:01:19 05/26/20 22 05/27/2022 CBC (LAVE NDER) monocytes # 0.33 x10e3 /uL 0.24 - 0.86 Not Available _andrew chavira MD Lab [address] [place] [address], [place], [address], 05/28/2022 10:01:19 05/26/20 22 05/27/2022 CBC (LAVE NDER) eosinophils # 0.26 x10e3 /uL 0.05 - 0.54 Not Available _andrew chavira MD Lab [address] [place] [address], [place], [address], 05/28/2022 10:01:19 05/26/20 22 05/27/2022 CBC (LAVE NDER) basophils # 0.05 x10e3 /uL 0.01 - 0.08 Not Available _andrew chavira MD Lab [address] [address], [place], [address], 05/28/2022 10:01:19 05/26/20 22 05/27/2022 CBC (LAVE NDER) platelets 296 x10e3 /uL 140 - 420 Not Available Calderon chavira MD Lab [address] [place] [address], [place], [address], 05/28/2022 10:01:19 05/26/20 22 05/27/2022 HGBA1 C W/EAG (LAVE NDER) HGBA1C w/EAG 5.6 % 4.5 - 5.6 Not Available _andrew chavira MD Lab [address] [address], [place], [address], 05/28/2022 10:01:19 05/26/20 22 05/27/2022 HGBA1 C W/EAG (LAVE NDER) average blood glucose(calc ulated) 114 mg/dL Accor ding to ADA guide lines , hemog lobin A1C <7.0% repre sents optim al contr rosalina non-p regna nt diabe tic patie nts. Diffe rent metri cs may apply to speci fic patie nt popul atcyndi s. Stand ards of Medic al Care in Diabe janis-2 013. Diabe janis Care. 2013; 36:s1 1-s66 For the purpo se of landry garibay for the prese nce of diabe janis: <5.7% Consi stent with the absen ce of diabe janis 5.7-6 .4% Consi stent with incre ased risk for diabe janis (pred iabet es) >or 6.5% Consi stent with diabe janis Diabe tic educa tion recom jason d for A1c >7% Curre ntly, no conse nsus exist s for use of hemog lobin A1C for diagn osis of diabe janis for child tracy. Not Available Calderon chavira MD Lab [address] [place] [address], [place], [address], 05/28/2022 10:01:19 05/26/20 22 05/27/2022 COMPR EHENS VANESSA METAB OLIC PANEL (SST) sodium 141 mmol/ L 135 - 145 Not Available Calderon chavira MD Lab [address] [place] [address], [place], [address], 05/28/2022 10:01:20 05/26/20 22 05/27/2022 COMPR EHENS VANESSA METAB OLIC PANEL (SST) potassium 4.1 mmol/ L 3.5 - 5.2 Not Available Calderon chavira MD Lab [address] [place] [address], [place], [address], 05/28/2022 10:01:20 05/26/20 22 05/27/2022 COMPR EHENS VANESSA METAB OLIC PANEL (SST) chloride 105 mmol/ L 97 - 108 Not Available Calderon chavira MD Lab [address] [place] [address], [place], [address], 05/28/2022 10:01:20 05/26/20 22 05/27/2022 COMPR EHENS VANESSA METAB OLIC PANEL (SST) carbon dioxide 30 mmol/ L 20 - 32 Not Available Calderon chavira MD Lab [address] [place] [address], [place], [address], 05/28/2022 10:01:20 05/26/20 22 05/27/2022 COMPR EHENS VANESSA METAB OLIC PANEL (SST) glucose 104 mg/dL 69 - 99 high Not Available Calderon chavira MD Lab [address] [place] [address], [place], [address], 05/28/2022 10:01:20 05/26/20 22 05/27/2022 COMPR EHENS VANESSA METAB OLIC PANEL (SST) BUN 12 mg/dL 6 - 26 Not Available Emily chavira MD Lab [address] [place] [address], [place], [address], 05/28/2022 10:01:20 05/26/20 22 05/27/2022 COMPR EHENS VANESSA METAB OLIC PANEL (SST) creatinine 1.0 mg/dL 0.5 - 1.4 Not Available Calderon chavira MD Lab [address] [place] [address], [place], [address], 05/28/2022 10:01:20 05/26/20 22 05/27/2022 COMPR EHENS VANESSA METAB OLIC PANEL (SST) SGOT (AST) 19 U/L 12 - 40 Not Available Calderon chavira MD Lab [address] [place] [address], [place], [address], 05/28/2022 10:01:20 05/26/20 22 05/27/2022 COMPR EHENS VANESSA METAB OLIC PANEL (SST) SGPT (ALT) 8 U/L 7 - 52 Not Available Darren chavira MD Lab [address] [place] [address], [place], [address], 05/28/2022 10:01:20 05/26/20 22 05/27/2022 COMPR EHENS VANESSA METAB OLIC PANEL (SST) alkaline phosphatase 64 U/L 29 - 121 Not Available Calderon chavira MD Lab [address] [place] [address], [place], [address], 05/28/2022 10:01:20 05/26/20 22 05/27/2022 COMPR EHENS VANESSA METAB OLIC PANEL (SST) total bilirubin 0.6 mg/dL 0.3 - 1.1 Not Available Calderon chavira MD Lab [address] [place] [address], [place], [address], 05/28/2022 10:01:20 05/26/20 22 05/27/2022 COMPR EHENS VANESSA METAB OLIC PANEL (SST) calcium 9.3 mg/dL 8.6 - 10.4 Not Available Calderon chavira MD Lab [address] [place] [address], [place], [address], 05/28/2022 10:01:20 05/26/20 22 05/27/2022 COMPR EHENS VANESSA METAB OLIC PANEL (SST) albumin 4.1 g/dL 3.5 - 5.8 Not Available Calderon chavira MD Lab [address] [place] [address], [place], [address], 05/28/2022 10:01:20 05/26/20 22 05/27/2022 COMPR EHENS VANESSA METAB OLIC PANEL (SST) total protein 6.7 g/dL 6.0 - 9.0 Not Available Calderon chavira MD Lab [address] [place] [address], [place], [address], 05/28/2022 10:01:20 05/26/20 22 05/27/2022 COMPR EHENS VANESSA METAB OLIC PANEL (SST) eGFR (non-aa)(christine culated) 63.17 mL/mi n >60.00 Not Available Calderon chavira MD Lab [address] [place] [address], [place], [address], 05/28/2022 10:01:20 05/26/20 22 05/27/2022 COMPR EHENS VANESSA METAB OLIC PANEL (SST) eGFR (aa)(calcula jennifer) 76.43 mL/mi n >60.00 Not Available Calderon chavira MD Lab [address] [place] [address], [place], [address], 05/28/2022 10:01:20 05/26/20 22 05/27/2022 LIPID PANEL (SST) cholesterol 251 mg/dL 69 - 200 high Not Available Calderon chavira MD Lab [address] [place] [address], [place], [address], 05/28/2022 10:01:20 05/26/20 22 05/27/2022 LIPID PANEL (SST) triglyceride s 184 mg/dL 29 - 150 high Not Available Calderon chavira MD Lab [address] [place] [address], [place], [address], 05/28/2022 10:01:20 05/26/20 22 05/27/2022 LIPID PANEL (SST) HDL 39 mg/dL 22 - 93 Not Available Calderon chavira MD Lab [address] [place] [address], [place], [address], 05/28/2022 10:01:20 05/26/20 22 05/27/2022 LIPID PANEL (SST) LDL(calculat ed) 175 mg/dL 0 - 130 high Not Available Calderon chavira MD Lab [address] [place] [address], [place], [address], 05/28/2022 10:01:20 05/26/20 22 05/27/2022 LIPID PANEL (SST) cholesterol/ HDL risk(calcula jennifer) 6.5 mg/dL 2.9 - 5.7 high Not Available Calderon chavira MD Lab [address] [place] [address], [place], [address], 05/28/2022 10:01:20 05/26/20 22 05/27/2022 SPECI MEN INTEG RITY CHECK (LIH) hemolysis 0 0 - 1 Not Available Krishna_karin chavira MD Lab [address] [place] [address], [place], [address], 05/28/2022 10:01:21 05/26/20 22 05/27/2022 SPECI MEN INTEG RITY CHECK (LIH) icterus 0 0 - 1 Not Available Emily chavira MD Lab [address] [place] [address], [place], [address], 05/28/2022 10:01:21 05/26/20 22 05/27/2022 SPECI MEN INTEG RITY CHECK (LIH) lipemia 0 0 - 1 Not Available Emily chavira MD Lab [address] [place] [address], [place], [address], 05/28/2022 10:01:21 05/26/20 22 05/27/2022 TSH WITH REFLE X TO FREE T4 (SST) TSH >47.60 0 uIU/m L 0.5 - 5.3 Not Available Calderon chavira MD Lab [address] [place] [address], [place], [address], 05/28/2022 10:01:22 05/26/20 22 05/27/2022 VITAM IN B12 (SST) vitamin B12 255 pg/mL 230 - 1050 Not Available Calderon chavira MD Lab [address] [place] [address], [place], [address], 05/28/2022 10:01:22 05/26/20 22 05/27/2022 SPECI MEN INTEG RITY CHECK (LIH) hemolysis 0 0 - 1 Not Available Vm_phx_v raf chavira MD Lab [address] [place] [address], [place], [address], 05/28/2022 11:00:26 05/26/20 22 05/27/2022 SPECI MEN INTEG RITY CHECK (LIH) icterus 0 0 - 1 Not Available Vm_phx_vil aníbal chavira MD Lab [address] [place] [address], [place], [address], 05/28/2022 11:00:26 05/26/20 22 05/27/2022 SPECI MEN INTEG RITY CHECK (LIH) lipemia 0 0 - 1 Not Available Vm_phx_vil aníbal chavira MD Lab [address] [place] [address], [place], [address], 05/28/2022 11:00:26 05/26/20 22 05/28/2022 FREE T4 (SST) free T4 0.29 uIU/m L 0.62 - 1.12 low Bioti n Thera py may inter fere with resul t Not Available Vm_phx_nurys chavira MD Lab [address] [place] [address], [place], [address], 05/28/2022 11:00:27 Result Notes None recorded. 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 Procedures Surgical History Date Name Laterality Status Provider Name and Address Organization Details Recorded Time 05/26/2022 Q BMI is too high G8417 completed [facility]/[place] 05/26/2022 12:26:17 Imaging Results None recorded. Procedure Notes None recorded. Medical Equipment None Reported. Allergies No known drug allergies Medications Name Sig Start Date Stop Date Status Note LastModified by Organization Details LastModified Time levothyroxine 125 mcg tablet TAKE ONE TABLET BY MOUTH DAILY active Not Available Not Available No t Available gabapentin 300 mg capsule Take 1 capsule every day by oral route at bedtime. 2021 active Not Available Not Available Not Avai lable methylprednisol one 4 mg tablets in a dose pack TAKE 6 TABLETS BY MOUTH ON DAY 1, 5 TABLETS ON DAY 2, 4 TABLETS ON DAY 3, 3 TABLETS ON DAY 4, 2 TABLETS ON DAY 5, 1 TABLET ON DAY 6 active Not Available Not Available No t Available Vitals Date Recorded Body temperature Heart rate Oxygen saturation Oxygen saturation in Arterial blood by Pulse oximetry Body weight Body mass index (BMI) Body height Systolic And Diastolic Provider Name and Address Organization Details Last Updated DateTime 2 98.9 [degF] 61 /min 94 % 94 % 60413.8 g 32.5 kg/m2 160.02 cm 105/65 mm[Hg] Yen [facility]/[place] 2 12:25:55 Social History None recorded. Functional Status None recorded. Mental Status None recorded. Family History Nothing Reported. Medical History No medical history recorded. Gynecological HistoryNo gynecological history recorded. Obstetrics History GPAL:G 0 P 0 0 0 0 Past Encounters Encounter ID Performer Location Encounter Start Date Encounter Closed Date Diagnosis/Indication Diagnosis SNOMED-CT Code Diagnosis ICD10 Code Diagnosis Note [id number] Lee Ventura NP [email or web address] [facility] ([facility]) [address] [place] [address] 05/26/2022 12:19:08 05/26/2022 14:35:08 Obesity 880656411 E66.9 Z68.32 Discussed weight loss opportunit ies including a sensible diet and routine activity or exercise as tolerated. Hypothyroidism 75152767 E03.9 continue Synthroid as directedob Xylitol [place] labs Depression screening 171 313957 Z13.31 Depression Screening Negative History of follicular adenocarcinoma of thyroid 168529624 Z85.850 Elevated blood-pressure reading without diagnosis of hypertension 923261719 R03.0 Prediabetes 782380564 R7 3.03 Neuropathy 277816849 G62 .9 unstableSt art Gabapentin at bedtime Pain of mu ltiple joints 66062118 M25.50 Malaise and fatigue 2717 95811 R53.83 Advised good sleep habits and patterns to include: 1. Setting a goal for at least 7 to 8 hours of sleep time per day. 2. Using the bed mainly for sleep and to go to bed only when tired. If unable to fall asleep after 30 minutes, patient should get out of bed but should not engage in any activity that requires sustained mental alertness. 3. Maintainin g a regular bedtime and wake-up time even on weekends or days off of work. 4. Avoiding excessive naps during the daytime. If a nap is necessary, limit it to no more than 30minutes. 5. Minimizing environmen rafael noise, bright lights, and extremes in bedroom temperatur e. 6. Avoiding alcohol, caffeinate d beverages, and nicotine products for at least 6 hours prior to bedtime. 7. Avoiding strenuous exercise and large meals for at least 4 hours prior to bedtime. Screening for malignant neoplasm of skin [id number] Z12.83 Screening for malignant neoplasm of breast [id number] Z12.31 Screening for malignant neoplasm of colon [id number] Z12.11 Noreen thyroiditis 21 [id number] E06.3 Insomnia [id number] G47.0 0 Advised good sleep habits and patterns to include: 1. Setting a goal for at least 7 to 8 hours of sleep time per day. 2. Using the bed mainly for sleep and to go to bed only when tired. If unable to fall asleep after 30 minutes, patient should get out of bed but should not engage in any activity that requires sustained mental alertness. 3. Maintainin g a regular bedtime and wake-up time even on weekends or days off of work. 4. Avoiding excessive naps during the daytime. If a nap is necessary, limit it to no more than 30minutes. 5. Minimizing environmen rafael noise, bright lights, and extremes in bedroom temperatur e. 6. Avoiding alcohol, caffeinate d beverages, and nicotine products for at least 6 hours prior to bedtime. 7. Avoiding strenuous exercise and large meals for at least 4 hours prior to bedtime. Health Concerns Section Related Observation LastModified by Organization Detai ls LastModified Time None Recorded Concern Status LastModified by Organization Details LastModified Time None Recorded Advance Directives Directive None Recorded Payers Insurance Date Sequence Insurance Name Policy Number Policy Martinez Covered Member ID Martinez Member ID Guarantor Name 02/27/2023 1 [facility] ([facility] Eleuterio Edge [id number] John Edge Notes Date Note Type Note Provider Name and Address Organization Details Recorded Time 05/26/2022 text/html Pt is a 47 yr ol d female presenting as a new pt to with multiple concerns.Past med hst: Hypothyroidism. Kidney Wils tumor of right side. She also had Thyroid cancer 2000. Follicular variant of papillary carcinoma thyroid. Partial resection completed. radio ablation caused limited thyroid tissue. She would like to establish care with an [facility] as well.Pt reports over the past yr she has been having nerve pain and mental fogginess . She does report that she is not compliant with her Synthroid and thinks this may be partially the cause. -Neuropathy: worsening and affecting and interrupting her sleep. Will start Gabapentin-Pt reports generalized aches, joint aches, numbness, and radiating pain to her right hip. She states she has flare ups and swelling in her hands. -Mammo and colonoscopy and dermatology skin cancer screening ordered. Lee Ventura NP [address] [facility],[address], [place], [address], [facility] - [facility]- [place]/CHANDU 05/26/2022 13:33:14 OBGyn Episode No OBEpisode recorded.
[2025-03-22 10:51] LABS: Hematocrit 35.6 % (36-47); Hemoglobin 11.50 g/dL (11.27-16.99); Mean Corpuscular HGB Conc 32.3 g/dL (30-55); Mean Corpuscular Hemoglobin 28.8 pg (27-33); Mean Corpuscular Volume 89.0 fl (85-98); Nucleated Red Blood Cells % 0 %; Platelet Count 318 10^3/cmm (157-399); Red Blood Count 4.00 10^6/uL (3.85-5.65); White Blood Count 6.04 10^3/uL (3.29-11.43)
[2025-03-22 11:18] LABS: Alanine Aminotransferase 16 U/L (0-33); Albumin Level 4.2 g/dL (3.5-5.2); Alkaline Phosphatase 84 U/L (35-105); Anion Gap 16.8 (5-19); Aspartate Amino Transferase 22 U/L (0-32); Blood Urea Nitrogen 9 mg/dL (6-20); Calcium 9.3 mg/dL (8.5-10.5); Carbon Dioxide 26 mmol/L (22-29); Chloride 98 mmol/L (98-107); Globulin 3.1 g/dL (1.3-4.6); Glucose 113 mg/dL (65-115); NT Pro B Type Natriuretic Pept 50 pg/mL (0-125); Osmolality Calculated 283 mOsm/kg (285-295); Potassium 3.8 mmol/L (3.5-5.1); Sodium 137 mmol/L (136-145); Total Protein 7.3 g/dL (6.6-8.7)
[2025-03-22 12:00] VITALS: BP 113/73; PULSE 88; O2SAT 92
== END 2025-03-22 12:00 | disposition home or self-care (01) ==
PROVIDERS: Emergency Provider Emergency Medicine; PCP Nurse Practitioner
DX: R60.0 Localized edema (principal); M21.371 Foot drop, right foot; Z87.891 Personal history of nicotine dependence
CPT/HCPCS: 36415; 80053; 82550; 83880; 85025; 86140; 93971; 99284

== ENCOUNTER → 2025-03-28 16:03 | Outpatient (BNVA) | payer OTHER, SELFPAY | PROVIDERS: PCP Nurse Practitioner; Visit Provider Nurse Practitioner | DX: E03.9 Hypothyroidism, unspecified (principal) | CPT/HCPCS: 84443 ==

== ENCOUNTER 2025-04-11 10:14 | Outpatient (CLI) | payer OTHER, SELFPAY ==
--- NOTE | 2025-04-11 10:15 | MR_ITS ---
WS: [id number] MRI of the RIGHT lower leg without and with gadolinium enhancement. INDICATION: Abnormal EMG. TECHNIQUE: Axial PD, axial T2, coronal T1, coronal STIR, sagittal STIR, sagittal T1, and post gadolinium imaging was obtained. FINDINGS: Diffuse edema with fatty atrophy and diffuse patchy irregular enhancement involving the RIGHT peroneus longus and brevis extending from the head of the fibula inferiorly off the [id number]. No visualized enhancing peroneal nerve or nerve sheath lesion. Associated enhancement and edema about the deep peroneal nerve and superficial peroneal nerves in this vicinity about the fibular head. Diffuse patchy enhancement with edema throughout the visualized peroneus longus and brevis muscles most compatible with a myositis. Normal bone marrow signal in the fibula. Findings are nonspecific and differential considerations are broad. Considerations include peroneal nerve entrapment or injury with neuropathy and myositis. Recommend correlation with NCS peroneal nerve conduction across the fibular head. Additional considerations include superficial peroneal nerve ent rapment or prior trauma with peroneal nerve injury. Additional systemic considerations include diabetes and autoimmune etiologies including rheumatoid arthritis, lupus, and Guillain-Fieldon. Neoplasm such as sarcoma although unusual is difficult to entirely exclude. Normal bone marrow signal in the fibula head and tibial plateau. No visualized tibial plateau fractures. Normal visualized popliteal fossa. Normal visualized popliteal vessels. No popliteal aneurysm. MR/MR lower leg RT wo/w con [id number] IMPRESSION: See discussion above
[2025-04-11] MEDS: gadobenate dimeglumine 20 mL vial 17 ML IV (10:58)
== END 2025-04-11 10:15 | disposition home or self-care (01) ==
PROVIDERS: PCP Nurse Practitioner; Visit Provider Psychiatry & Neurology Neurology
DX: G57.31 Lesion of lateral popliteal nerve, right lower limb (principal)
CPT/HCPCS: 73720; A9577

== ENCOUNTER 2025-04-24 10:47 | Outpatient (CLI) | payer OTHER, SELFPAY ==
--- NOTE | 2025-04-24 11:00 | MR_ITS ---
WS: [id number] MRI LUMBAR SPINE without and with gadolinium enhancement. TECHNIQUE: Sagittal T1, T2 and STIR imaging. Axial T1 and T2 imaging. Post gadolinium imaging was obtained. CLINICAL INFORMATION: M54.50 - Low back pain, unspecified COMPARISON: CT 02/20/2025 FINDINGS: Mild lumbar curve. No acute compression. Disc bulging worse at L3-L5. Small annular fissure at L4-5. L1-L2: Normal. L2-L3: Mild facet arthropathy. Spinal canal and foramen are patent. L3-L4: Shallow central disc protrusion with slight effacement of the ventral thecal sac. Narrowing of the LEFT greater than RIGHT subarticular recess. Moderate facet arthropathy. Foramen are patent. L4-L5: Mild disc bulging with slight narrowing of the RIGHT subarticular recess. Moderate facet arthropathy. Small annular tear. Mild RIGHT foraminal narrowing. L5-S1: Mild disc bulging with a shallow central protrusion. Spinal canal and foramen are patent. Moderate facet arthropathy. Prior RIGHT nephrectomy. Enlarged heterogeneously enhancing retroverted uterus. Recommend further evaluation with pelvic ultrasound. Indeterminate partially visualized ovoid lesion in the cul-de-sac measuring 5.5 x 4.1 cm. This demonstrates increased T1 signal partially visualized which may present blood products or proteinaceous debris. MR/MR lumbar spine wo/w con [id number] IMPRESSION: 1. Shallow central protrusion L3-4 with slight narrowing of the LEFT greater t garcia RIGHT subarticular recess. 2. Disc bulging L4-5 with a small annular tear and slight impingement on the R IGHT subarticular recess. Mild RIGHT foraminal narrowing. 3. Tiny shallow central protrusion L5-S1. Spinal canal is patent at this level . 4. Moderate facet arthropathy L5-S1. 5. Prior RIGHT nephrectomy. 6. Enlarged heterogeneously enhancing retroverted uterus. Recommend further ev aluation with pelvic ultrasound. 7. Partially visualized ovoid lesion in the cul-de-sac measuring 5.5 x 4.1 cm. This could be further evaluated with pelvic ultrasound but would probably be b valerie assessed with contrast-enhanced pelvic CT if ultrasound indeterminant.
[2025-04-24] MEDS: gadobenate dimeglumine 20 mL vial 17 ML IV (11:42)
== END 2025-04-24 10:48 | disposition home or self-care (01) ==
LOC: RAD 10:50
PROVIDERS: PCP Nurse Practitioner; Visit Provider Psychiatry & Neurology Neurology
DX: M48.062 Spinal stenosis, lumbar region with neurogenic claudication (principal); M51.26 Other intervertebral disc displacement, lumbar region
CPT/HCPCS: 72158; A9577

== ENCOUNTER 2025-05-03 10:18 | Day surgery (SDC) | payer OTHER, SELFPAY ==
[2025-05-03] VITALS (12 sets, daily range): BP systolic 75–110; BP diastolic 52–74; PULSE 58–83; RESP 16–18; TEMP 36.3–36.7; O2SAT 90–100; BMI 31.0
--- NOTE | 2025-05-03 11:35 | ANES.PREANE2 ---
Pre-Anesthetic Assessment Height/Weight: Height 5 ft 4 in Weight 181 lb Temp Pulse Resp BP Pulse Ox O2 Del Method 98.1 F 83 18 110/74 99 Room Air 05/03/25 11:00 05/03/25 11:00 05/03/25 11:00 05/03/25 11:00 05/03/25 11:00 05/03/25 11:08 Preop Diagnosis: Compartment syndrome right leg Operation Date: 05/03/25 12:00 Proposed Procedures p multiple compartment decompression fasciotomy with debridement of nonviable soft tissue(Right) - Orion Bains DPM s Peroneal Nerve Decompression(Right) - Orion Bains DPM Was Beta Ibis taken within 24 hours: N/A Was Clonidine taken within 24 hours: N/A Last intake: Intake Last Liquid Date 05/02/25 Last Liquid Time 23:45 Last Solid Date 05/02/25 Last Solid Time 19:30 Social No alcohol and No tobacco Exam alert, oriented x 3, clear to auscultation bilaterally and regular rate & rhythm Airway Submandibular: within normal limits Cervical ROM: within normal limits Mallampati: Class II Dentition: full Anesthetic Plan ASA status: 3 Anesthesia: General and Regional (specify below) Other: No prior issues with anesthesia NPO since yesterday evening History of hypothyroidism on Synthroid NII, no treatment MDD and LYLE noted Recent labs 03/22/2025 reviewed and acceptable for procedure Plan for general anesthesia and possible peripheral nerve block Medications/Allergies Home Medications ?Medication ?Instructions ?Recorded ?Confirmed ?Last Taken ?Type ibuprofen 800 mg tablet 800 mg PO Q8H PRN pain #20 tabs 02/20/25 05/02/25 05/01/25 Rx gabapentin 300 mg capsule 300 mg PO QPM 03/22/25 05/02/25 05/02/25 History levothyroxine 175 mcg tablet 175 mcg PO QAM #30 tabs 04/19/25 05/02/25 05/02/25 Rx AFO to right-[place] style #1 ea 04/24/25 04/28/25 Unknown Rx Allergies Allergy/AdvReac Type Severity Reaction Status Date / Time Sulfa (Sulfonamide Allergy Intermediate Unknown Verified 05/03/25 10:56 Antibiotics) [facility] Anesthesia Medical History (Updated 04/28/25 @ 18:44 by Orion Bains DPM) Psychiatric care Family History Grandmother Cancer maternal- colon Family/Other Cancer cousins-- breast Father Cancer prostate Denies family history of Diabetes Chronic kidney disease (CKD) Social History Smoking and tobacco/nicotine status: never used tobacco/nicotine Female Reproductive History Date of last menstrual period: 04/26/25 Para: 4 Spontaneous abortions: Yes
[2025-05-03 11:39] LABS: OR HCG Qualitative Urine Negative (Negative)
--- NOTE | 2025-05-03 12:01 | W.PM.OPSUD ---
Surgery/Procedure H&P Update DATE OF PROCEDURE: May 03, 2025 DATE H&P PERFORMED: 04/28/25 H&P UPDATE INFORMATION: I have reviewed H&P completed within last 30 days, I have examined patient prior to procedure, No changes to prior documentation and Risks and benefits of the procedure reviewed PREOP DIAGNOSIS: Compartment syndrome right leg PLANNED PROCEDURE: Operation Date: 05/03/25 12:00 Proposed Procedures p multiple compartment decompression fasciotomy with debridement of nonviable soft tissue(Right) - Orion Bains DPM s Peroneal Nerve Decompression(Right) - Orion Bains DPM
[2025-05-03] MEDS: ceFAZolin 2,000 mg SDV 2000 MG IVP (12:03)
--- NOTE | 2025-05-03 12:50 | P.BOP_ITS ---
Surgeon: Orion Bains DPM Raimann Machine Operator(s): Lynda Procedure(s) performed: Right leg fasciotomy and right common peroneal nerve decompression. Findings of the procedure(s): Increased intracompartmental pressures right leg and entrapped right common peroneal nerve Estimated blood loss: 2 mL Specimen(s) removed: No specimens Post-operative diagnosis: Compartment syndrome right lower extremity. Common peroneal nerve entrapment right lower extremity.
--- NOTE | 2025-05-03 12:51 | PM.OP ---
Operative Report Date of procedure: May 03, 2025 Pre-op diagnosis: Foot drop, right M21.371 Nerve entrapment syndrome of right lower extremity G57.91 Compartment syndrome right lower extremity M79.821 Post-op diagnosis: Foot drop, right M21.371 Nerve entrapment syndrome of right lower extremity G57.91 Compartment syndrome right lower extremity M79.821 Procedure done: Right leg multiple compartment decompression fasciotomy with debridement of nonviable soft tissue and muscle. CPT code 30834 Right common peroneal nerve decompression. CPT code 07517 Implants: 2-0 Vicryl, 4-0 Vicryl, skin minerva Specimens removed/disposition: None Pathology: None Surgeon: Orion Bains DPM Certified Scrum Master: Mariza Estimated blood loss: 5 mL See intraoperative documentation IV fluids: See intraoperative documentation Urine output: No urine output Complications: No complications Findings: No soft tissue necrosis, no myonecrosis Brief History: Lateral and anterior right leg compartments measure 36 mmHg, patient deferred posterior compartments to be measured states that if she requires a fasciotomy she would rather have those compartments tested when she is asleep. After having discussed compartment syndrome advised patient to not wait until her previously discussed May 12 surgical date which was to decompress the common peroneal nerve and distal branches, with newfound information regarding compartment syndrome I advised the patient to proceed with surgery as soon as possible to avoid further soft tissue and neurovascular damage, patient states that she would like to wait till next week that she is having her car worked on and that her radiator should be done on Thursday and she requested Thursday as her surgical date May 03, 2025 for this reason. I reviewed at length with the patient, the risks, potential complications, benefits, alternatives, expectations, and typical outcomes associated with the surgery. The risks and potential complications were explained in detail, including but not limited to infection, wound dehiscence or soft tissue complications, bleeding and hematoma, chronic edema, neuritis or nerve damage producing numbness or chronic pain, CRPS, failure to relieve pain or worsening pain, thick / painful / unsightly scar, limited motion / stiffness, malposition, delayed union, malunion, or nonunion, fracture, reaction to implants, anesthetic complications, venous thromboembolism, and deformity recurrence. I discussed the notion of no regrets with the patient as it pertains to complications and outcomes. The patient seemed to understand the nature of the proposed care and required convalescence. They asked appropriate questions, answered to their satisfaction. They are aware no guarantees can be made as to a satisfactory outcome and they understand there may be other possible unforeseen complications or outcomes not listed here that will be treated accordingly if they arise. There were no written or implied guarantees given to the patient. They gave informed consent to proceed. Procedure: Under mild sedation patient was brought to the operating room and remained on the gurney in supine position. A timeout was performed. Anesthesia was administered by the anesthesia service. Well-padded pneumatic tourniquet applied to the patient's right thigh. Right lower extremity was scrubbed, prepped and draped utilizing normal aseptic technique. Right lower extremity was then elevated and tourniquet inflated to 300 mmHg. Attention was directed to the right lateral leg. A longitudinal incision, approximately 4 cm in length, was made overlying the fibular head, centered over the area of maximal tenderness and nerve compression. The subcutaneous tissues were dissected, and the fascia overlying the peroneus longus muscle was identified. The fascia was carefully incised, and the peroneus longus muscle was retracted. The common peroneal nerve was identified as it coursed around the fibular neck. The nerve was carefully dissected free from surrounding tissues. Dense fibrous bands and scar tissue were noted compressing the nerve at the fibular head. These constricting bands were meticulously released using microsurgical techniques. The nerve was inspected along its course, and no further areas of compression were identified. Hemostasis was achieved with electrocautery. The wound was irrigated with sterile saline. Attention was then directed to the lateral compartment of the right leg where a longitudinal incision was made along the entire length of the right leg through skin with a 15 blade with dissection carried down through subcutaneous tissue to the layer of crural fascia which was then identified at the anterior compartment and lateral compartments which were released longitudinally from proximal to distal with Metzenbaum scissors care taken to retract and preserve neurovascular and tendinous structures. Attention was then directed posteriorly to the superficial posterior compartment of the right leg and a fasciotomy performed longitudinally of the crural fascia posteriorly with Metzenbaum scissors care taken to retract and preserve neurovascular and tendinous structures entire length of the posterior compartment was released and a obvious decompression was appreciated with muscle protruding after the release. Attention was then directed to the peroneal muscles which were retracted anteriorly and were able to palpate the posterior border of the tibia and the deep posterior compartment was able to be released off of the posterior tibial border from proximal to distal with 15 blade under direct visualization protecting neurovascular tendinous structures. A fasciotomy was successfully performed of all 4 compartments of the left leg. The incision was irrigated with saline solution, deep tissue reapproximated with 2-0 Vicryl, subcutaneous tissue with 3-0 Vicryl and skin with skin minerva. The incision was dressed with Xeroform, gauze, Kerlix and 4 inch Jamie wrap and stockinette. Tourniquet was deflated and a prompt hyperemic response was noted to the distal digits of the right foot. Patient tolerated the procedure and anesthesia well and was transferred to the PACU with vital signs stable and vascular status intact. Following a period of postoperative monitoring should be discharged home without home care instructions and scheduled follow-up.
[2025-05-03] MEDS: fentaNYL 50 mcg/mL INJ 2mL IVP (13:05)
--- NOTE | 2025-05-03 13:21 | ECG_ITS ---
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 Measurements Intervals [place] Rate: 65 P: -22 [place]: 160 QRS: -25 QRSD: 77 T: 0 QT: 394 QTc: 410 Interpretive Statements SINUS RHYTHM LOW QRS VOLTAGE [QRS DEFLECTION < 0.5/1.0 mV IN LIMB/CHEST LEADS] POSSIBLE ANTERIOR MYOCARDIAL INFARCTION , PROBABLY OLD [30 ms Q WAVE IN V3/V4, OR R < 0.2 mV IN V4] No previous ECG available for comparison Electronically Signed On 05-03-2025 22:19:20 CDT by Romain Mcgrath M.D. [email or web address]
--- NOTE | 2025-05-03 15:28 | ANE.PACU2 ---
Inpatient post-anesthesia follow up: Airway intact: Yes Vital signs: Temperature 97.7 F Pulse Rate 68 Respiratory Rate 18 Blood Pressure 101/66 Pulse Oximetry 94 Oxygen Delivery Me thod Room Air Oxygen Flow Rate Fraction of Inspir ed Oxygen Hydration adequate: Yes Nausea and vomiting: No Pain level: 1 Mental status: Baseline
== END 2025-05-03 15:28 | disposition home or self-care (01) ==
PROVIDERS: Student in an Organized Health Care Education/Training Program; PCP Nurse Practitioner; Visit Provider Podiatrist Foot & Ankle Surgery
PROC: (CPT 27894; principal; 2025-05-03 12:00)
PROC: (CPT 64708; 2025-05-03 12:00)
DX: G57.91 Unspecified mononeuropathy of right lower limb (principal); M21.371 Foot drop, right foot; G47.33 Obstructive sleep apnea (adult) (pediatric); E03.9 Hypothyroidism, unspecified; F32.9 Major depressive disorder, single episode, unspecified; F41.9 Anxiety disorder, unspecified
CPT/HCPCS: 27894; 64708; 81025; 93005; J0131; J0690; J1100; J1171; J1885; J2405; J2704; J3010; J7030